=== PATIENT | male | born 1970 | race Caucasian/White ===

== ENCOUNTER → 2017-08-30 | Outpatient (CLI) | payer OTHER ==
--- NOTE | 2017-08-30 13:54 | DIAGNOSTIC IMAGING REPORT ---
RIGHT FOOT 3 VIEWS HISTORY: Right fifth MTP joint pain. Possible foreign body. PAIN IN UNSPECIFIED TOES COMPARISON: None. FINDINGS: There is no fracture or dislocation. Mild soft tissue swelling at the fifth MTP joint. No radiopaque foreign bodies. The Lisfranc joint is well aligned. Small according ossific density at the medial base of the distal phalanx of the first toe. This is likely related to old trauma. No radiopaque foreign bodies. IMPRESSION: Mild soft tissue swelling at the fifth MTP joint. No radiopaque foreign bodies. Electronically signed by: Tiburcio Hernández M.D. 08/30/2017 1:53 PM Dictated Date/Time: 08/30/2017 1:51 PM
== END | disposition home or self-care (01) ==
LOC: C.RAD1850 13:22
PROVIDERS: ATTEND Family Medicine
DX: M79.676 Pain in unspecified toe(s) (principal)

== ENCOUNTER → 2017-09-02 | Outpatient (CLI) | payer OTHER ==
--- NOTE | 2017-09-02 16:02 | DIAGNOSTIC IMAGING REPORT ---
RIGHT FIFTH MTP JOINT ULTRASOUND CLINICAL HISTORY: Right fifth toe pain.Possible foreign body. COMPARISON STUDY: Right foot 08/30/2017. FINDINGS: Real-time sonographic imaging of the right fifth MTP joint was performed with specialty sales representative images submitted. No masses or fluid collections identified within the soft tissues. No foreign bodies. IMPRESSION: No sonographic abnormality at the right fifth MTP joint. Electronically signed by: Tiburcio Hernández M.D. 09/02/2017 4:00 PM Dictated Date/Time: 09/02/2017 3:59 PM
== END | disposition home or self-care (01) ==
LOC: C.ULTR 14:57
PROVIDERS: ATTEND Family Medicine
DX: M79.674 Pain in right toe(s) (principal)